=== PATIENT | female | born 1995 | race Hispanic/Latino ===

== ENCOUNTER 2017-01-31 20:51 | Emergency (ER) | payer MEDICAID ==
[2017-01-31 21:06] VITALS: BP 131/84; PULSE 70; RESP 18; TEMP 98.2; O2SAT 97
--- NOTE | 2017-01-31 21:44 | C.PDOC ---
History Of Present Illness 21 year old female with dental cavity complains of toothache for several days. Patient states she chipped her left lower tooth weeks ago and has been causing her pain. She has not sough dental care. She has been taking Tylenol with little relief. Denies any fever or bleeding, but noticed mild swelling to face today. Time Seen by Provider: 01/31/17 21:11 Chief Complaint (Nursing): Dental Pain History Per: Patient History/Exam Limitations: no limitations Onset/Duration Of Symptoms: Days, Persistent Current Symptoms Are (Timing): Still Present Severity: Moderate Quality: Positive for: "Pain" Past Medical History Reviewed: Historical Data, Nursing Documentation, Vital Signs Vital Signs: Last Vital Signs Temp 98.2 F 01/31/17 21:02 Pulse 70 01/31/17 21:02 Resp 18 01/31/17 21:02 BP 131/84 01/31/17 21:02 Pulse Ox 97 01/31/17 21:44 - Medical History PMH: Asthma Family History: States: Unknown Family Hx - Social History Hx Alcohol Use: No Hx Substance Use: No - Immunization History Hx Tetanus Toxoid Vaccination: No Hx Influenza Vaccination: No Hx Pneumococcal Vaccination: No Review Of Systems Except As Marked, All Systems Reviewed And Found Negative. ENT: Positive for: Mouth Pain (Toothache) Physical Exam - Physical Exam Appears: Non-toxic, Other (uncomfortable holding mouth) Skin: Warm, Dry, No Diaphoretic, No Rash Head: Atraumatic, Normacephalic Eye(s): bilateral: Normal Inspection, EOMI Nose: Normal, Flaring Oral Mucosa: Moist Tongue: Normal Appearing, No Swelling Lips: Normal Appearing, No Swelling Teeth: Caries (multiple; large yamel to left lower molar and surrounding gingival swelling, no fluctuance) Gingiva: No Ulceration, No Bleeding, No Abscess Throat: Normal, No Erythema, No Exudate, No Drooling, No Mass Neck: Normal ROM Chest: Symmetrical Cardiovascular: Rhythm Regular, No Murmur Respiratory: Normal Breath Sounds, No Wheezing Extremity: Bilateral: Atraumatic, Normal ROM Neurological/Psych: Oriented x3, Normal Speech Gait: Steady ED Course And Treatment O2 Sat by Pulse Oximetry: 97 (room air) Pulse Ox Interpretation: Normal Medical Decision Making Medical Decision Makin21 year old female with dental cavity and toothache, no signs of abscess. Patient to be treated with Penicillin and Tylenol. Patient was not satisfied with my assessment requesting dental care and to speak with ER physician. Dr Bermeo also evaluated patient and agreed with my plan and treatment. Patient was treated with Penicillin and Tylenol and to be discharged and instructed to follow up with dental clinic. Disposition Counseled Patient/Family Regarding: Diagnosis, Need For Followup, Rx Given - Disposition Referrals: [facility] [Outside] Disposition: HOME/ ROUTINE Disposition Time: 21:42 Condition: STABLE Additional Instructions: Please take Tylenol up to 1000mg every 6-8 hours as needed for pain Take antibiotic twice daily and be sure to finish taking all of antibiotic. Please follow up with dental clinic for further care Prescriptions: Penicillin VK [Pen-Vee K] 1 tab PO BID #20 tab Instructions: Toothache (ED) Forms: [facility] (Albanian) - POA Present On Arrival: None - Clinical Impression Clinical Impression: Dental caries, Toothache - PA / PRINT DESIGNER / Resident Statement MD/DO has examined the patient and agrees with the treatment plan.
== END 2017-01-31 21:52 | disposition home or self-care (01) ==
LOC: C.ER 20:51
DX: K02.9 Dental caries, unspecified (principal)